=== PATIENT | male | born 1995 | race African-American/Black ===

== ENCOUNTER 2024-07-12 07:41 | Emergency (ER) | payer MEDICAID ==
[~2024-07-12] VITALS: Ht 185.4 cm; Wt 79.0 kg
[2024-07-12 07:45] VITALS: O2SAT 98
[2024-07-12 08:06] VITALS: TEMP 36.78072; O2SAT 98
[2024-07-12 08:11] VITALS: BP 106/72; PULSE 83; RESP 16
[2024-07-12] MEDS: IBUPROFEN 600MG TABLET PO ONE (08:11)
[2024-07-12 08:12] VITALS: TEMP 98.2
[2024-07-12] MEDS: ACETAMINOPHEN 325MG TABLET PO ONE (08:12)
[2024-07-12] MEDS: BACITRACIN ZINC OINT UDPKT TOP ONE (08:12)
== END 2024-07-12 10:33 | disposition left against medical advice (07) ==
LOC: ER 07:41
DX: S60.412A Abrasion of right middle finger, initial encounter (principal); W23.1XXA Caught, crushed, jammed, or pinched between stationary objects, initial encounter; Y93.89 Activity, other specified; Y92.89 Other specified places as the place of occurrence of the external cause; Y99.8 Other external cause status
CPT/HCPCS: 99283